=== PATIENT | male | born 1995 | race Two or more races ===

== ENCOUNTER 2021-05-26 12:55 | Inpatient (IN) | payer BC ==
[2021-05-26 13:32] VITALS: BMI 22.9
[2021-05-26] MEDS ORDERED: MAGNESIUM HYDROX 2400MG/30ML ORAL SUSPENSION 30 ML CUP PO PRN (13:48)
[2021-05-26] MEDS ORDERED: MENTHOL/PHENOL 1 EACH UD MM PRN (13:48)
[2021-05-26] MEDS ORDERED: NICOTINE POLACRILEX 2 MG GUM BUC PRN (13:48)
[2021-05-26] MEDS ORDERED: ONDANSETRON *ODT* 4 MG TABLET SL PRN (13:48)
[2021-05-26] MEDS ORDERED: MAGNESIUM CITRATE 300 ML BOTTLE PO PRN (13:48)
[2021-05-26] MEDS ORDERED: ACETAMINOPHEN 325 MG TABLET (FP) PO PRN ×2 (13:48)
[2021-05-26] MEDS ORDERED: BISMUTH SUBSALICYLATE 524 MG/30 ML PO PRN (13:48)
[2021-05-26] MEDS ORDERED: MAG HYDROX/AL HYDROX/SIMETH 30 ML UNIT-DOSE CUP PO PRN (13:48)
[2021-05-26] MEDS ORDERED: ALBUTEROL SO4 2 MG TABLET PO PRN (13:59)
[2021-05-26] MEDS ORDERED: methaDONE HCL 10 MG TABLET (FOR DETOX USE ONLY) PO ONE (14:30)
[2021-05-26 17:09] LABS: HEMATOCRIT 43.7 % (35.4-49); HEMOGLOBIN 15.1 GM/dL (11.7-16.9); MCH 30.1 pg (25.7-33.7); MCHC 34.6 g/dl (32.0-35.9); PLATELET COUNT 288 10^3/uL (134-434); RBC 5.03 M/mm3 (4.00-5.60); RDW 13.6 % (11.9-15.9); WHITE BLOOD COUNT 10.8 K/mm3 (4.0-10.0)
[2021-05-26 17:13] LABS: CALCIUM 9.5 mg/dL (8.5-10.1)
[2021-05-26 17:14] LABS: ALBUMIN 4.2 g/dl (3.4-5.0); BLOOD UREA NITROGEN 8.7 mg/dL (7-18)
[2021-05-26 17:17] LABS: CREATININE 0.8 mg/dL (0.55-1.3)
[2021-05-26 17:18] LABS: BILIRUBIN,TOTAL 0.4 mg/dL (0.2-1); TOT PROT 8.6 g/dl (6.4-8.2)
[2021-05-26] MEDS: hydrOXYzine PAMOATE 25 MG CAPSULE (FP) PO SCH ×3 (18:01→22:28)
[2021-05-26] MEDS: PRENATAL VITAMINS W/ FOLIC ACID TABLET (FP) PO SCH (18:02)
[2021-05-26] MEDS ORDERED: SUVOREXANT 10 MG TABLET PO PRN (22:00)
[2021-05-26] MEDS ORDERED: MELATONIN 5 MG TABLETS PO SCH (22:00)
[2021-05-26] MEDS: THIAMINE HCL 100 MG TABLET (FP) PO SCH (22:28)
[2021-05-26] MEDS: cloNIDine HCL 0.1 MG TABLET PO PRN (22:28)
[2021-05-26] MEDS: METHOCARBAMOL 500 MG TABLET PO PRN (22:32)
[2021-05-27] MEDS: METHOCARBAMOL 500 MG TABLET PO PRN ×2 (05:08→18:34)
[2021-05-27] MEDS: hydrOXYzine PAMOATE 25 MG CAPSULE (FP) PO SCH (05:08)
[2021-05-27] MEDS: cloNIDine HCL 0.1 MG TABLET PO PRN ×2 (05:56→18:34)
[2021-05-27] MEDS ORDERED: methaDONE HCL 10 MG TABLET (FOR DETOX USE ONLY) ONE (09:31)
[2021-05-27] MEDS: hydrOXYzine PAMOATE 25 MG CAPSULE (FP) PO PRN ×2 (09:33→22:15)
[2021-05-27] MEDS: IBUPROFEN 400 MG TABLET (FP) PO PRN ×2 (09:33→22:15)
[2021-05-27] MEDS: diazePAM 5 MG TABLET PO PRN ×2 (09:34→22:16)
[2021-05-27] MEDS: PRENATAL VITAMINS W/ FOLIC ACID TABLET (FP) PO SCH (09:34)
[2021-05-27] MEDS: THIAMINE HCL 100 MG TABLET (FP) PO SCH (22:16)
[2021-05-27] MEDS: SUVOREXANT 15 MG TABLET PO PRN (23:10)
[2021-05-28] MEDS: diazePAM 5 MG TABLET PO PRN ×2 (02:27→22:08)
[2021-05-28] MEDS ORDERED: methaDONE HCL 10 MG TABLET (FOR DETOX USE ONLY) PO ONE (10:00)
[2021-05-28] MEDS: PRENATAL VITAMINS W/ FOLIC ACID TABLET (FP) PO SCH (10:10)
[2021-05-28] MEDS: THIAMINE HCL 100 MG TABLET (FP) PO SCH (22:06)
[2021-05-28] MEDS: SUVOREXANT 15 MG TABLET PO PRN (22:06)
[2021-05-28] MEDS: IBUPROFEN 400 MG TABLET (FP) PO PRN (22:09)
[2021-05-29] MEDS: IBUPROFEN 400 MG TABLET (FP) PO PRN (08:55)
[2021-05-29] MEDS: hydrOXYzine PAMOATE 25 MG CAPSULE (FP) PO PRN (08:55)
[2021-05-29] MEDS ORDERED: methaDONE HCL 10 MG TABLET (FOR DETOX USE ONLY) ONE (09:26)
[2021-05-29] MEDS: PRENATAL VITAMINS W/ FOLIC ACID TABLET (FP) PO SCH (10:13)
[2021-05-29] MEDS: diazePAM 5 MG TABLET PO PRN ×2 (14:05→22:13)
[2021-05-29] MEDS: SUVOREXANT 15 MG TABLET PO PRN (22:12)
[2021-05-29] MEDS: THIAMINE HCL 100 MG TABLET (FP) PO SCH (22:13)
[2021-05-30] MEDS: diazePAM 5 MG TABLET PO PRN (02:17)
[2021-05-30] MEDS ORDERED: methaDONE HCL 10 MG TABLET (FOR DETOX USE ONLY) PO ONE (10:00)
[2021-05-30] MEDS: PRENATAL VITAMINS W/ FOLIC ACID TABLET (FP) PO SCH (10:05)
[2021-05-30] MEDS: METHOCARBAMOL 500 MG TABLET PO PRN ×2 (10:07→22:31)
[2021-05-30] MEDS: THIAMINE HCL 100 MG TABLET (FP) PO SCH (22:29)
[2021-05-30] MEDS: IBUPROFEN 400 MG TABLET (FP) PO PRN (22:30)
[2021-05-30] MEDS: hydrOXYzine PAMOATE 25 MG CAPSULE (FP) PO PRN (22:31)
[2021-05-31 09:58] VITALS: BP 134/88; PULSE 110; TEMP 97.3
== END 2021-05-31 09:43 | disposition home or self-care (01) | DRG 897 ==
LOC: YASAS 12:55 → Y3N 14:46
PROVIDERS: ADMIT Allergy & Immunology; ATTEND Allergy & Immunology
PROC: HZ2ZZZZ Detoxification Services for Substance Abuse Treatment (ICD-10-PCS; principal; 2021-05-26)
DX: F11.23 Opioid dependence with withdrawal (principal); F19.282 Other psychoactive substance dependence with psychoactive substance-induced sleep disorder; F19.280 Other psychoactive substance dependence with psychoactive substance-induced anxiety disorder; F17.210 Nicotine dependence, cigarettes, uncomplicated; F41.9 Anxiety disorder, unspecified; G47.00 Insomnia, unspecified; J45.909 Unspecified asthma, uncomplicated; J30.2 Other seasonal allergic rhinitis; K21.9 Gastro-esophageal reflux disease without esophagitis
CPT/HCPCS: 36415; 80053; 85027; 86780; 93005; 93010; C9803; J0735; U0003; U0005